=== PATIENT | female | born 1990 | race Caucasian/White ===

== ENCOUNTER 2018-02-06 11:22 | Emergency (ER) | payer MEDICAID ==
[~2018-02-06] VITALS: Ht 172.7 cm; Wt 127.0 kg
[~2018-02-06 11:22] MED LIST: ALBU8HFA PO; AMOX500C2 PO; AZIT250T81 PO; BACL10TA PO; CYCL-1 PO; DIAZ5TAB PO; DIPH25CA83 PO; ESCI10TA PO; IBUP-1051 PO; PRED50TA PO; TRAM50TA2 PO
[2018-02-06] MEDS ORDERED: VENL75TA4 PO (13:01)
[2018-02-06 13:49] VITALS: BP 120/82
== END 2018-02-06 13:52 | disposition home or self-care (01) ==
LOC: ER 11:23
DX: F32.9 Major depressive disorder, single episode, unspecified (principal); F41.9 Anxiety disorder, unspecified; G89.29 Other chronic pain; R11.2 Nausea with vomiting, unspecified; R19.7 Diarrhea, unspecified; Z56.0 Unemployment, unspecified; Z91.030 Bee allergy status; Z79.899 Other long term (current) drug therapy
CPT/HCPCS: 99284

== ENCOUNTER 2019-03-23 10:58 | Outpatient (CLI) | payer MEDICAID ==
[~2019-03-23 10:58] MED LIST changes: +VENL75TA4 PO
== END 2019-03-23 23:59 | disposition home or self-care (01) ==
LOC: VAS 10:58
PROVIDERS: ATTEND Nurse Practitioner Obstetrics & Gynecology
DX: M79.89 Other specified soft tissue disorders (principal); F17.200 Nicotine dependence, unspecified, uncomplicated; Z91.030 Bee allergy status; Z91.038 Other insect allergy status; Z91.018 Allergy to other foods
CPT/HCPCS: 93971

== ENCOUNTER 2019-06-17 13:10 | Emergency (ER) | payer MEDICAID ==
[~2019-06-17] VITALS: Ht 172.7 cm; Wt 127.3 kg
[~2019-06-17 13:10] MED LIST changes: +IBUP-1985 PO
[2019-06-17 15:01] LABS: BASOPHILS % (AUTO) 0.3 % (0-1); EOSINOPHILS % (AUTO) 0.2 % (0-6); HEMATOCRIT 40.6 % (35.0-45.0); HEMOGLOBIN 13.6 g/dl (12.0-16.0); LYMPHOCYTES # (AUTO) 1.9 X10'3 (1.1-4.8); LYMPHOCYTES % (AUTO) 28.6 % (21-51); MEAN CORPUSCULAR HEMOGLOBIN 28.6 PG (27.0-31.0); MEAN CORPUSCULAR HGB CONC 33.6 g/dL (33.0-36.5); MEAN CORPUSCULAR VOLUME 85.1 FL (78-98); MEAN PLATELET VOLUME 8.8 FL (7.4-10.4); MONOCYTES # (AUTO) 0.5 X10'3 (0-0.9); MONOCYTES % (AUTO) 7.8 % (2-12); NEUTROPHILS # (AUTO) 4.2 X10'3 (1.8-7.7); NEUTROPHILS % (AUTO) 63.1 % (42-75); PLATELET COUNT 309 X10'3 (140-440); RED BLOOD COUNT 4.77 X10'6 (4.20-5.60); RED CELL DISTRIBUTION WIDTH 15.3 % (11.5-14.5); WHITE BLOOD COUNT 6.7 X10'3 (4.5-11.0)
[2019-06-17 15:02] LABS: ALANINE AMINOTRANSFERASE 39 U/L (12-78); ALBUMIN 3.8 G/DL (3.4-5.0); ALBUMIN/GLOBULIN RATIO 0.9 (1.1-1.5); ALKALINE PHOSPHATASE 83 IU/L (46-116); ANION GAP 8 (8-16); ASPARTATE AMINO TRANSFERASE 22 U/L (10-37); BILIRUBIN,TOTAL 0.7 MG/DL (0.1-1.0); BLOOD UREA NITROGEN 7 MG/DL (7-18); CALCIUM 9.2 MG/DL (8.5-10.1); CHLORIDE 105 MMOL/L (99-107); CREATININE 0.87 MG/DL (0.40-0.90); GLUCOSE 90 MG/DL (70-104); PARTIAL THROMBOPLASTIN TIME 28 SECONDS (22-32); POTASSIUM 3.8 MMOL/L (3.5-5.1); SODIUM 138 MMOL/L (135-145); TOTAL CARBON DIOXIDE 24.6 MMOL/L (24-32); TOTAL PROTEIN 8.1 G/DL (6.4-8.2); eGFR 76 ML/MIN
[2019-06-17] MEDS ORDERED: predniSONE 20 mg tablet PO ONE (15:25)
[2019-06-17] MEDS ORDERED: LORazepam 1 MG tablet PO ONE (15:25)
[2019-06-17] MEDS ORDERED: albuterol 2.5 MG/3 ML nebule NEB ONE (15:25)
[2019-06-17 16:52] VITALS: BP 145/100
== END 2019-06-17 16:55 | disposition home or self-care (01) ==
LOC: ER 13:11
DX: J45.901 Unspecified asthma with (acute) exacerbation (principal); G89.29 Other chronic pain; F41.0 Panic disorder [episodic paroxysmal anxiety]; Z56.0 Unemployment, unspecified; Z91.030 Bee allergy status; Z79.899 Other long term (current) drug therapy
CPT/HCPCS: 36415; 71045; 80053; 84484; 85025; 85610; 85730; 93005; 94640; 94760; 99284; J7512

== ENCOUNTER 2019-10-09 16:10 | Emergency (ER) | payer MEDICAID ==
[~2019-10-09] VITALS: Ht 172.7 cm; Wt 140.0 kg
[2019-10-09 16:21] VITALS: BP 137/77
[2019-10-09] MEDS ORDERED: LIDOcaine Viscous 15ml cup MM STA (16:58)
[2019-10-09] MEDS ORDERED: ketorolac tromethamine 15mg/ml inj. IM ONE (17:00)
[2019-10-09] MEDS ORDERED: AMOX500C2 PO (17:02)
[2019-10-09] MEDS ORDERED: L. R1CAP4 PO (17:02)
== END 2019-10-09 17:39 | disposition home or self-care (01) ==
LOC: ER 16:10
DX: K08.89 Other specified disorders of teeth and supporting structures (principal); K05.6 Periodontal disease, unspecified; G89.29 Other chronic pain; F41.9 Anxiety disorder, unspecified; Z56.0 Unemployment, unspecified; Z91.030 Bee allergy status; Z79.899 Other long term (current) drug therapy
CPT/HCPCS: 96372; 99283; J1885

== ENCOUNTER 2020-09-02 20:09 | Emergency (ER) | payer MEDICAID ==
[~2020-09-02] VITALS: Ht 172.7 cm; Wt 136.4 kg
[~2020-09-02 20:09] MED LIST changes: +L. R1CAP4 PO
[2020-09-02 20:19] VITALS: BP 129/101
[2020-09-02] MEDS ORDERED: AZIT250T29 PO (21:30)
[2020-09-02] MEDS ORDERED: ALBU8.5H8 INH (21:30)
== END 2020-09-02 22:00 | disposition home or self-care (01) ==
LOC: ER 20:10
DX: J06.9 Acute upper respiratory infection, unspecified (principal); Z20.828 Contact with and (suspected) exposure to other viral communicable diseases; J45.909 Unspecified asthma, uncomplicated; G89.29 Other chronic pain; F41.9 Anxiety disorder, unspecified; F17.200 Nicotine dependence, unspecified, uncomplicated; Z56.0 Unemployment, unspecified; Z91.030 Bee allergy status; Z79.899 Other long term (current) drug therapy
CPT/HCPCS: 36415; 87635; 99283

== ENCOUNTER 2022-03-12 00:31 | Emergency (ER) | payer MEDICAID ==
[~2022-03-12] VITALS: Ht 172.7 cm; Wt 140.6 kg
[~2022-03-12 00:31] MED LIST changes: +ALBU8.5H17 INH
[2022-03-12 00:37] VITALS: BP 133/92
== END 2022-03-12 03:06 | disposition left against medical advice (07) ==
LOC: ER 00:32
DX: R05.9 Cough, unspecified (principal); Z53.21 Procedure and treatment not carried out due to patient leaving prior to being seen by health care provider
CPT/HCPCS: 71045

== ENCOUNTER 2023-05-02 09:47 | Emergency (ER) | payer MEDICAID ==
[~2023-05-02] VITALS: Ht 175.3 cm; Wt 133.2 kg
[2023-05-02 09:54] VITALS: BP 186/108
[2023-05-02] MEDS ORDERED: AMOX-117 PO (11:54)
[2023-05-02] MEDS ORDERED: NYST1000 PO (11:54)
[2023-05-02] MEDS ORDERED: NAPR-996 PO (11:55)
[2023-05-02] MEDS ORDERED: ketorolac tromethamine 15mg/ml inj. IM ONE (12:00)
== END 2023-05-02 12:06 | disposition home or self-care (01) ==
LOC: ER 09:47
DX: B37.0 Candidal stomatitis (principal); K08.89 Other specified disorders of teeth and supporting structures; R21 Rash and other nonspecific skin eruption; J45.909 Unspecified asthma, uncomplicated; F31.9 Bipolar disorder, unspecified; G89.29 Other chronic pain; Z91.018 Allergy to other foods; Z79.899 Other long term (current) drug therapy; Z91.030 Bee allergy status; Z79.1 Long term (current) use of non-steroidal anti-inflammatories (NSAID); Z79.2 Long term (current) use of antibiotics
CPT/HCPCS: 96372; 99283; J1885

== ENCOUNTER 2023-06-14 08:02 | Emergency (ER) | payer MEDICAID ==
[~2023-06-14] VITALS: Ht 170.2 cm; Wt 115.0 kg
[~2023-06-14 08:02] MED LIST changes: +NAPR-996 PO
[2023-06-14 08:03] VITALS: BP 111/90
[2023-06-14] MEDS ORDERED: acetaminophen 325mg tablet PO ONE (08:35)
[2023-06-14] MEDS ORDERED: PRED20TA PO (08:36)
[2023-06-14] MEDS ORDERED: AMOX-117 PO (08:36)
== END 2023-06-14 08:48 | disposition home or self-care (01) ==
LOC: ER 08:02
DX: J02.9 Acute pharyngitis, unspecified (principal); J45.909 Unspecified asthma, uncomplicated; Z91.018 Allergy to other foods; Z91.030 Bee allergy status; Z79.1 Long term (current) use of non-steroidal anti-inflammatories (NSAID); Z79.2 Long term (current) use of antibiotics; Z79.899 Other long term (current) drug therapy; Z56.0 Unemployment, unspecified
CPT/HCPCS: 87880; 99283

== ENCOUNTER 2024-04-26 15:38 | Emergency (ER) | payer MEDICAID ==
[~2024-04-26] VITALS: Ht 172.7 cm; Wt 131.5 kg
[2024-04-26 15:45] VITALS: BP 138/82; PULSE 87; RESP 18; O2SAT 98
[2024-04-26] MEDS ORDERED: SULF1TAB49 PO (16:21)
[2024-04-26] MEDS ORDERED: CEPH-585 PO (16:21)
[2024-04-26] MEDS: CefTRIAXone 1000mg IM Kit (w/lidocaine diluent) IM ONE (16:34)
[2024-04-26 16:46] VITALS: TEMP 98
== END 2024-04-26 16:50 | disposition home or self-care (01) ==
LOC: ER 15:39
DX: L03.113 Cellulitis of right upper limb (principal); Z88.8 Allergy status to other drugs, medicaments and biological substances; Z91.018 Allergy to other foods; J45.909 Unspecified asthma, uncomplicated; G89.29 Other chronic pain; M54.9 Dorsalgia, unspecified; F41.9 Anxiety disorder, unspecified
CPT/HCPCS: 96372; 99283; J0696

== ENCOUNTER 2024-06-14 11:31 | Emergency (ER) | payer MEDICAID ==
[~2024-06-14] VITALS: Ht 172.7 cm; Wt 134.8 kg
[2024-06-14] MEDS ORDERED: AMOX500C2 PO (12:57)
[2024-06-14 13:06] VITALS: BP 138/78; PULSE 88; RESP 20; TEMP 98.2; O2SAT 97
== END 2024-06-14 13:07 | disposition home or self-care (01) ==
LOC: ER 11:31
DX: K04.7 Periapical abscess without sinus (principal); K02.9 Dental caries, unspecified; K00.7 Teething syndrome; J45.909 Unspecified asthma, uncomplicated; G89.29 Other chronic pain; M54.9 Dorsalgia, unspecified; F41.9 Anxiety disorder, unspecified; Z88.8 Allergy status to other drugs, medicaments and biological substances; Z91.018 Allergy to other foods; Z79.2 Long term (current) use of antibiotics; Z79.1 Long term (current) use of non-steroidal anti-inflammatories (NSAID); Z79.52 Long term (current) use of systemic steroids; Z56.0 Unemployment, unspecified
CPT/HCPCS: 99283